=== PATIENT | female | born 1990 | race Caucasian/White ===

== ENCOUNTER 2019-11-16 15:33 | Emergency (ER) | payer MEDICAID ==
[~2019-11-16] VITALS: Ht 157.5 cm; Wt 81.8 kg
[2019-11-16 17:45] VITALS: BP 151/101
== END 2019-11-16 17:55 | disposition home or self-care (01) ==
LOC: ER 15:34
DX: J32.9 Chronic sinusitis, unspecified (principal); Z88.1 Allergy status to other antibiotic agents
CPT/HCPCS: 99281

== ENCOUNTER 2020-10-08 23:23 | Emergency (ER) | payer MEDICAID ==
[~2020-10-08] VITALS: Ht 157.5 cm; Wt 86.0 kg
[2020-10-08 23:28] VITALS: BP 147/106
[2020-10-09] MEDS ORDERED: ondansetron 4mg rapidly disintigrating tab PO ONE (00:20)
[2020-10-09] MEDS ORDERED: ONDA4TAB6 PO (00:21)
== END 2020-10-09 00:36 | disposition home or self-care (01) ==
LOC: ER 23:23
DX: S06.0X0A Concussion without loss of consciousness, initial encounter (principal); Z88.8 Allergy status to other drugs, medicaments and biological substances; Z79.899 Other long term (current) drug therapy; W07.XXXA Fall from chair, initial encounter; Y93.89 Activity, other specified; Y92.89 Other specified places as the place of occurrence of the external cause; Y99.8 Other external cause status
CPT/HCPCS: 99284